=== PATIENT | male | born 1960 | race Caucasian/White ===

== ENCOUNTER 2022-09-02 15:53 | Emergency (ER) | payer BC, SELFPAY ==
--- NOTE | 2022-09-02 15:55 | ED.URI ---
HPI - URI/Sore Throat General Chief Complaint: Upper Respiratory Infection Stated Complaint: cough, trouble breathing, congestion, diarrhea Time Seen by Provider: 09/02/22 15:55 Source: patient Mode of arrival: ambulatory Limitations: no limitations History of Present Illness HPI Narrative: Mr. Vazquez is a 61 year ol male patient presenting to the clinic today with c/o cough, difficulty breathing, congestion, and diarrhea since Wednesday. He reports he tested for COVID yesterday and was negative. He reports that he has had fever as well. MD elicited complaint: cough, nasal congestion and other (Diarrhea, difficulty breathing) Related Data Allergies Allergy/AdvReac Type Severity Reaction Status Date / Time No Known Allergies Allergy Verified 09/02/22 16:07 Review of Systems Review of Systems: Pertinent positives per HPI. Patient denies any rash, visual changes, dizziness, chest pain, palpitations, nausea, vomiting, diarrhea, constipation, abdominal pain, or any urinary issues. PMFSH Comments At the time of my signature, I reviewed and agree with the nursing past medical, surgical, social, and family history. There is no relevant family history pertinent to the patient complaint. Exam Narrative: General: Well-developed, well nourished, in no apparent distress Head: Normocephalic, atraumatic Eyes: Pupils equally round and reactive to light bilaterally, EOM intact, sclera and conjunctive clear, no discharge, lids normal Ears: TMs intact and dull, ear canals clear, no drainage, grossly hearing normal. Nose: Nares patent, clear nasal discharge, no inflammation, no sinus tenderness. Mouth: Oral pharynx without lesions or masses, good dentition, MMM. Oropharynx red, postnasal drip Neck: Supple, trachea midline, no enlargement of anterior or posterior cervical nodes, no thyroid masses or goiter palpable. Cardio: Regular rate and rhythm, s1 and s2 normal, no murmur appreciated. Resp: Clear to auscultation bilaterally, no rhonchi, rales, wheezing or rubs Course Course Emergency Course: Portions of this record may have been created with voice recognition software. Level of Care: Express Care Visit Vital Signs Vital signs: Vital Signs Temperature 36.5 C 09/02/22 16:08 Pulse Rate 83 09/02/22 16:08 Respiratory Rate 16 09/02/22 16:08 Blood Pressure 123/86 09/02/22 16:08 Pulse Oximetry 98 09/02/22 16:08 Oxygen Delivery Room Air 09/02/22 16:08 Temperature 36.5 C 09/02/22 16:08 Pulse Rate 83 09/02/22 16:08 Respiratory Rate 16 09/02/22 16:08 Blood Pressure 123/86 09/02/22 16:08 Pulse Oximetry 98 09/02/22 16:08 Oxygen Delivery Room Air 09/02/22 16:08 Vital signs reviewed MDM - URI/Sore Throat MDM Narrative Medical decision making narrative: At the time of visit patient is resting comfortably on exam table. Influenza and COVID test were obtained. COVID testing was negative in the clinic today patient is positive for influenza A. Prescription for Tamiflu was sent to the pharmacy and supportive measures were discussed with the patient he voiced understanding of discharge instructions and agrees to treatment plan. Differential Diagnosis Differential diagnosis: Likely upper respiratory infection, otitis media, sinusitis, viral infection, bronchitis, influenza, pharyngitis and other (COVID) Lab Data Labs: Lab Results 09/02/22 Range/Units 16:06 POC SARS CoV-2 Ag Negative (Negative) Influenza A Screen Positive Reference Range: Negative Influenza B Screen Negative Reference Range: Negative Discharge Plan Discharge Clinical Impression: Influenza A Patient Disposition: Home, Self-Care Condition: Stable Instructions: Antibiotic Form, Influenza (ED) Additional Instructions: Take prescription medications only as prescribed-tamiflu
[2022-09-02 16:08] VITALS: BP 123/86; PULSE 83; RESP 16; TEMP 36.5; O2SAT 98
== END 2022-09-02 16:52 | disposition home or self-care (01) ==
PROVIDERS: Emergency Provider Nurse Practitioner Family
DX: J10.1 Influenza due to other identified influenza virus with other respiratory manifestations (principal); Z20.822 Contact with and (suspected) exposure to COVID-19
CPT/HCPCS: 87426; 87804; 99213; C9803; G0463